=== PATIENT | male | born 1960 | race Caucasian/White ===

== ENCOUNTER 2020-10-24 16:13 | Inpatient (IN) | payer MEDICAID, OTHER ==
[~2020-10-24] VITALS: Ht 188 cm; Wt 92.6 kg
--- NOTE | 2020-10-24 16:36 | NUR ---
calibrator barometers note: Pt currently in CT. division order technician to take pt to room 10 when study is complete.
[2020-10-24 16:49] LABS: BASOPHILS % (AUTO) 1 % (0-1); EOSINOPHILS % (AUTO) 1 % (1-7); LYMPHOCYTES % (AUTO) 38 % (22-44); MEAN CORPUSCULAR HGB CONC 34.2 g/dL (33.2-36.2); MEAN PLATELET VOLUME 9.4 fL (7.4-10.4); MONOCYTES % (AUTO) 15 % (2-9); NEUTROPHILS % (AUTO) 46 % (42-75); PLATELET COUNT 159 x10^3/uL (130-400); RED BLOOD COUNT 5.04 x10^6/uL (4.38-5.82); RED CELL DISTRIBUTION WIDTH 13.7 % (9.4-14.8)
[2020-10-24 16:59] LABS: ALBUMIN 3.5 g/dL (3.4-5.0); ANION GAP 7 mmol/L (5-15); CALCIUM 8.4 mg/dL (8.5-10.1); CHLORIDE 106 mmol/L (98-107)
[2020-10-24 17:04] LABS: ALANINE AMINOTRANSFERASE 32 U/L (12-78); ALKALINE PHOSPHATASE 95 U/L (45-117); BILIRUBIN,TOTAL 0.5 mg/dL (0.2-1.0); CREATININE 0.96 mg/dL (0.7-1.3); TOTAL PROTEIN 7.9 g/dL (6.4-8.2)
[2020-10-24 17:06] LABS: INTERNATIONAL NORMALIZED RATIO 0.96 (0.93-1.1); PROTHROMBIN TIME 10.3 Seconds (9.6-11.5)
--- NOTE | 2020-10-24 18:38 | NUR ---
float rn at bedside to break primary rn, maranda, for lunch. pt back from radiology, tolerated scan well. denies needs at this time. vss.
--- NOTE | 2020-10-24 20:51 | NUR ---
attempt x 1
[2020-10-24 22:42] VITALS: BP 145/92
[2020-10-24 23:00] VITALS: BP 120/75
[2020-10-24] MEDS ORDERED: METO50TA82 PO (23:11)
[2020-10-24] MEDS ORDERED: OXYC-501 PO (23:11)
[2020-10-24] MEDS ORDERED: CLOP75TA52 PO (23:11)
[2020-10-24] MEDS ORDERED: LISI30TA4 PO (23:11)
[2020-10-24] MEDS ORDERED: CLON1TAB11 PO (23:11)
[2020-10-25] VITALS (10 sets, daily range): BP systolic 110–159; BP diastolic 64–89
[2020-10-25] MEDS: ATORVASTATIN 40 MG TABLET PO SCH ×2 (00:47→21:21)
[2020-10-25 06:53] LABS: CHOL/HDL RATIO 6.2; LDL/HDL RATIO 3.3 (0.5-3.0)
[2020-10-25] MEDS ORDERED: ASPIRIN 81 MG TABLET CHEW PO/NG SCH (09:00)
[2020-10-25] MEDS ORDERED: LORazepam 2 MG/ML, 1ML IVPush ONE (09:30)
[2020-10-25] MEDS ORDERED: OXYcodone/APAP 10/325MG TABLET PO PRN (09:30)
[2020-10-25] MEDS: HEPARIN 5,000 UNITS/ML, 1ML SQ SCH ×2 (09:42→18:19)
[2020-10-25] MEDS: INSULIN LISPRO 100 UNITS/ML, PEN SQ-INSULIN SCH ×3 (14:45→21:22)
[2020-10-25] MEDS: metFORMIN 850 MG TABLET PO SCH (18:19)
[2020-10-25] MEDS: OXYcodone/APAP 10/325MG TABLET PO PRN (19:41)
[2020-10-26] MEDS: HEPARIN 5,000 UNITS/ML, 1ML SQ SCH ×3 (00:58→16:42)
[2020-10-26 01:02] VITALS: BP 120/75
[2020-10-26 01:08] VITALS: BP 120/75
[2020-10-26] MEDS: OXYcodone/APAP 10/325MG TABLET PO PRN ×4 (01:50→20:26)
[2020-10-26 04:29] VITALS: BP 119/80
[2020-10-26 06:19] LABS: BASOPHILS % (AUTO) 1 % (0-1); EOSINOPHILS % (AUTO) 3 % (1-7); LYMPHOCYTES % (AUTO) 48 % (22-44); MEAN CORPUSCULAR HEMOGLOBIN 32.3 pg (27.5-34.5); MEAN CORPUSCULAR HGB CONC 34.3 g/dL (33.2-36.2); MEAN PLATELET VOLUME 9.1 fL (7.4-10.4); MONOCYTES % (AUTO) 13 % (2-9); NEUTROPHILS % (AUTO) 35 % (42-75); PLATELET COUNT 116 x10^3/uL (130-400); RED BLOOD COUNT 4.42 x10^6/uL (4.38-5.82); RED CELL DISTRIBUTION WIDTH 13.5 % (9.4-14.8)
[2020-10-26 06:25] LABS: CHLORIDE 104 mmol/L (98-107)
[2020-10-26 06:29] LABS: ANION GAP 5 mmol/L (5-15); CREATININE 0.67 mg/dL (0.7-1.3)
[2020-10-26] MEDS ORDERED: POTASSIUM CHLORIDE 20 MEQ TAB.ER.PRT PO ONE ×2 (07:00→08:30)
[2020-10-26] MEDS: INSULIN LISPRO 100 UNITS/ML, PEN SQ-INSULIN SCH ×4 (07:00→20:41)
[2020-10-26] MEDS: LISINOPRIL 20 MG TABLET PO SCH (08:05)
[2020-10-26] MEDS: metFORMIN 850 MG TABLET PO SCH ×2 (08:05→16:42)
[2020-10-26] MEDS: CLOPIDOGREL 75 MG TABLET PO SCH (08:05)
[2020-10-26] MEDS: ASPIRIN 325 MG TABLET EC PO SCH (08:09)
[2020-10-26 08:58] VITALS: BP 129/78
[2020-10-26 13:24] LABS: LDL/HDL RATIO 3.1 (0.5-3.0)
[2020-10-26 14:22] VITALS: BP 129/75
[2020-10-26 19:34] VITALS: BP 140/78
[2020-10-26] MEDS: ATORVASTATIN 40 MG TABLET PO SCH (20:26)
[2020-10-27 00:42] VITALS: BP 136/86
[2020-10-27] MEDS: HEPARIN 5,000 UNITS/ML, 1ML SQ SCH ×3 (00:44→18:08)
[2020-10-27 03:49] VITALS: BP 139/87
[2020-10-27] MEDS: OXYcodone/APAP 10/325MG TABLET PO PRN ×4 (03:51→21:57)
[2020-10-27] MEDS: ASPIRIN 325 MG TABLET EC PO SCH (05:25)
[2020-10-27] MEDS: INSULIN LISPRO 100 UNITS/ML, PEN SQ-INSULIN SCH ×4 (07:00→20:14)
[2020-10-27 07:20] VITALS: BP 144/87
[2020-10-27] MEDS: LISINOPRIL 20 MG TABLET PO SCH (08:28)
[2020-10-27] MEDS: CLOPIDOGREL 75 MG TABLET PO SCH (08:28)
[2020-10-27] MEDS: metFORMIN 850 MG TABLET PO SCH ×2 (08:28→16:07)
[2020-10-27 13:30] VITALS: BP 119/74
[2020-10-27 19:22] VITALS: BP 115/65
[2020-10-27] MEDS: ATORVASTATIN 40 MG TABLET PO SCH (21:58)
[2020-10-28 00:53] VITALS: BP 131/80
[2020-10-28] MEDS: HEPARIN 5,000 UNITS/ML, 1ML SQ SCH ×3 (01:44→16:35)
[2020-10-28] MEDS: ASPIRIN 325 MG TABLET EC PO SCH (06:15)
[2020-10-28] MEDS: OXYcodone/APAP 10/325MG TABLET PO PRN ×2 (06:15→10:34)
[2020-10-28] MEDS: INSULIN LISPRO 100 UNITS/ML, PEN SQ-INSULIN SCH ×4 (07:00→20:48)
[2020-10-28] MEDS: metFORMIN 850 MG TABLET PO SCH ×2 (08:16→16:35)
[2020-10-28] MEDS: CLOPIDOGREL 75 MG TABLET PO SCH (08:16)
[2020-10-28] MEDS: LISINOPRIL 20 MG TABLET PO SCH (08:16)
[2020-10-28 14:02] VITALS: BP 91/60
[2020-10-28 18:43] VITALS: BP 118/74
[2020-10-28] MEDS: ATORVASTATIN 40 MG TABLET PO SCH (20:48)
[2020-10-29] MEDS: OXYcodone/APAP 10/325MG TABLET PO PRN ×4 (00:25→23:19)
[2020-10-29] MEDS: HEPARIN 5,000 UNITS/ML, 1ML SQ SCH ×3 (00:25→16:11)
[2020-10-29 01:47] VITALS: BP 106/74
[2020-10-29] MEDS: ASPIRIN 325 MG TABLET EC PO SCH (05:09)
[2020-10-29] MEDS: INSULIN LISPRO 100 UNITS/ML, PEN SQ-INSULIN SCH ×4 (07:31→20:20)
[2020-10-29] MEDS: metFORMIN 850 MG TABLET PO SCH ×2 (08:58→16:11)
[2020-10-29] MEDS: LISINOPRIL 20 MG TABLET PO SCH (08:58)
[2020-10-29] MEDS: CLOPIDOGREL 75 MG TABLET PO SCH (08:58)
[2020-10-29 19:18] VITALS: BP 100/61
[2020-10-29] MEDS: ATORVASTATIN 40 MG TABLET PO SCH (20:20)
[2020-10-30 01:01] VITALS: BP 112/71
[2020-10-30] MEDS: HEPARIN 5,000 UNITS/ML, 1ML SQ SCH ×3 (02:32→16:33)
[2020-10-30] MEDS: ASPIRIN 81 MG TABLET EC PO SCH (05:21)
[2020-10-30] MEDS: INSULIN LISPRO 100 UNITS/ML, PEN SQ-INSULIN SCH ×4 (07:00→20:58)
[2020-10-30 07:24] VITALS: BP 100/62
[2020-10-30] MEDS: OXYcodone/APAP 10/325MG TABLET PO PRN ×3 (07:39→20:58)
[2020-10-30] MEDS: metFORMIN 850 MG TABLET PO SCH ×2 (08:00→16:33)
[2020-10-30] MEDS: CLOPIDOGREL 75 MG TABLET PO SCH (08:26)
[2020-10-30] MEDS ORDERED: LISINOPRIL 10 MG TABLET PO SCH (09:00)
[2020-10-30 12:44] VITALS: BP 108/76
[2020-10-30 19:18] VITALS: BP 100/60
[2020-10-30] MEDS: ATORVASTATIN 40 MG TABLET PO SCH (20:58)
[2020-10-31] MEDS: HEPARIN 5,000 UNITS/ML, 1ML SQ SCH ×3 (01:00→16:57)
[2020-10-31 01:18] VITALS: BP 110/72
[2020-10-31] MEDS: OXYcodone/APAP 10/325MG TABLET PO PRN ×4 (03:00→21:30)
[2020-10-31] MEDS: ASPIRIN 81 MG TABLET EC PO SCH (05:21)
[2020-10-31] MEDS: INSULIN LISPRO 100 UNITS/ML, PEN SQ-INSULIN SCH ×4 (07:00→19:53)
[2020-10-31 07:06] VITALS: BP 108/72
[2020-10-31] MEDS: metFORMIN 850 MG TABLET PO SCH ×2 (08:58→16:57)
[2020-10-31] MEDS: CLOPIDOGREL 75 MG TABLET PO SCH (08:58)
[2020-10-31 12:58] VITALS: BP 106/71
[2020-10-31 19:26] VITALS: BP 118/71
[2020-10-31] MEDS: ATORVASTATIN 40 MG TABLET PO SCH (21:30)
[2020-11-01 00:20] VITALS: BP 112/73
[2020-11-01] MEDS: HEPARIN 5,000 UNITS/ML, 1ML SQ SCH ×3 (01:16→17:10)
[2020-11-01] MEDS: ASPIRIN 81 MG TABLET EC PO SCH (06:11)
[2020-11-01] MEDS: OXYcodone/APAP 10/325MG TABLET PO PRN ×3 (06:11→21:40)
[2020-11-01] MEDS: INSULIN LISPRO 100 UNITS/ML, PEN SQ-INSULIN SCH ×4 (07:00→21:41)
[2020-11-01 07:34] VITALS: BP 108/73
[2020-11-01] MEDS: CLOPIDOGREL 75 MG TABLET PO SCH (08:29)
[2020-11-01] MEDS: metFORMIN 850 MG TABLET PO SCH ×2 (08:29→17:10)
[2020-11-01 15:39] VITALS: BP 135/82
[2020-11-01 20:33] VITALS: BP 123/82
[2020-11-01] MEDS: ATORVASTATIN 40 MG TABLET PO SCH (21:40)
[2020-11-02] MEDS: HEPARIN 5,000 UNITS/ML, 1ML SQ SCH ×3 (01:14→16:39)
[2020-11-02 03:05] VITALS: BP 129/81
[2020-11-02] MEDS: OXYcodone/APAP 10/325MG TABLET PO PRN ×4 (03:06→22:20)
[2020-11-02] MEDS: ASPIRIN 81 MG TABLET EC PO SCH (05:18)
[2020-11-02 08:49] LABS: BASOPHILS % (AUTO) 1 % (0-1); EOSINOPHILS % (AUTO) 4 % (1-7); LYMPHOCYTES % (AUTO) 38 % (22-44); MEAN CORPUSCULAR HEMOGLOBIN 32.6 pg (27.5-34.5); MEAN CORPUSCULAR HGB CONC 35.4 g/dL (33.2-36.2); MEAN PLATELET VOLUME 9.2 fL (7.4-10.4); MONOCYTES % (AUTO) 12 % (2-9); NEUTROPHILS % (AUTO) 46 % (42-75); PLATELET COUNT 145 x10^3/uL (130-400); RED BLOOD COUNT 4.55 x10^6/uL (4.38-5.82); RED CELL DISTRIBUTION WIDTH 13.6 % (9.4-14.8)
[2020-11-02 08:52] LABS: ANION GAP 8 mmol/L (5-15); CALCIUM 8.5 mg/dL (8.5-10.1); CHLORIDE 102 mmol/L (98-107)
[2020-11-02] MEDS: INSULIN LISPRO 100 UNITS/ML, PEN SQ-INSULIN SCH ×4 (08:54→20:45)
[2020-11-02] MEDS: CLOPIDOGREL 75 MG TABLET PO SCH (08:55)
[2020-11-02] MEDS: metFORMIN 850 MG TABLET PO SCH ×2 (08:55→16:39)
[2020-11-02 08:56] LABS: ALANINE AMINOTRANSFERASE 79 U/L (12-78); ALKALINE PHOSPHATASE 92 U/L (45-117); BILIRUBIN,TOTAL 0.7 mg/dL (0.2-1.0); CREATININE 0.73 mg/dL (0.7-1.3); TOTAL PROTEIN 7.3 g/dL (6.4-8.2)
[2020-11-02 08:59] VITALS: BP 135/79
[2020-11-02 12:01] VITALS: BP 136/92
[2020-11-02 20:28] VITALS: BP 132/79
[2020-11-02] MEDS: ATORVASTATIN 40 MG TABLET PO SCH (20:42)
[2020-11-03 01:37] VITALS: BP 138/86
[2020-11-03] MEDS: HEPARIN 5,000 UNITS/ML, 1ML SQ SCH ×3 (01:37→17:56)
[2020-11-03] MEDS: OXYcodone/APAP 10/325MG TABLET PO PRN ×3 (04:24→17:57)
[2020-11-03] MEDS: ASPIRIN 81 MG TABLET EC PO SCH (05:27)
[2020-11-03] MEDS: INSULIN LISPRO 100 UNITS/ML, PEN SQ-INSULIN SCH ×3 (07:00→16:00)
[2020-11-03 07:07] VITALS: BP 144/63
[2020-11-03] MEDS ORDERED: OXYC-501 PO (09:55)
[2020-11-03] MEDS ORDERED: ATOR40TA78 PO (09:55)
[2020-11-03] MEDS ORDERED: ASPI81TA45 PO (09:55)
[2020-11-03] MEDS: CLOPIDOGREL 75 MG TABLET PO SCH (10:04)
[2020-11-03] MEDS: metFORMIN 850 MG TABLET PO SCH ×2 (10:04→17:56)
[2020-11-03 15:04] VITALS: BP 136/86
== END 2020-11-03 21:02 | disposition home or self-care (01) | DRG 948 ==
LOC: ED 20:49 → EDIP 20:55 → 4EST 21:27
PROVIDERS: ADMIT Internal Medicine; ATTEND Family Medicine
DX: R53.1 Weakness (principal); I69.351 Hemiplegia and hemiparesis following cerebral infarction affecting right dominant side; E11.9 Type 2 diabetes mellitus without complications; E78.5 Hyperlipidemia, unspecified; F17.210 Nicotine dependence, cigarettes, uncomplicated; F41.0 Panic disorder [episodic paroxysmal anxiety]; G89.29 Other chronic pain; I10 Essential (primary) hypertension; I65.23 Occlusion and stenosis of bilateral carotid arteries; J32.9 Chronic sinusitis, unspecified; W18.39XA Other fall on same level, initial encounter; Z79.02 Long term (current) use of antithrombotics/antiplatelets; Z79.891 Long term (current) use of opiate analgesic; Z91.81 History of falling; Z99.3 Dependence on wheelchair; Z85.528 Personal history of other malignant neoplasm of kidney; Y93.89 Activity, other specified; Y92.89 Other specified places as the place of occurrence of the external cause; Y99.8 Other external cause status
CPT/HCPCS: 36415; 70450; 70496; 70498; 70551; 80048; 80053; 80061; 82962; 83036; 83735; 84100; 85025; 85610; 85730; 87338; 93005; 93306; 93356; 96374; 99285; G0378; J1644; 92523-GN; J1815; J2060

== ENCOUNTER 2020-11-08 11:07 | Inpatient (IN) | payer SELFPAY ==
[~2020-11-08] VITALS: Ht 180.3 cm; Wt 90.9 kg
[~2020-11-08 11:07] MED LIST: ASPI81TA45 PO; ATOR40TA78 PO; CLON1TAB11 PO; CLOP75TA52 PO; LISI30TA4 PO; METO50TA82 PO; OXYC-501 PO
[2020-11-08 13:41] LABS: BASOPHILS % (AUTO) 1 % (0-1); EOSINOPHILS % (AUTO) 1 % (1-7); LYMPHOCYTES % (AUTO) 29 % (22-44); MEAN CORPUSCULAR HEMOGLOBIN 32.9 pg (27.5-34.5); MEAN CORPUSCULAR HGB CONC 35.6 g/dL (33.2-36.2); MEAN PLATELET VOLUME 8.7 fL (7.4-10.4); MONOCYTES % (AUTO) 9 % (2-9); NEUTROPHILS % (AUTO) 60 % (42-75); PLATELET COUNT 283 x10^3/uL (130-400); RED BLOOD COUNT 5.02 x10^6/uL (4.38-5.82); RED CELL DISTRIBUTION WIDTH 13.9 % (9.4-14.8)
[2020-11-08 13:54] LABS: ALBUMIN 3.7 g/dL (3.4-5.0); ANION GAP 6 mmol/L (5-15); CALCIUM 8.9 mg/dL (8.5-10.1); CHLORIDE 101 mmol/L (98-107)
[2020-11-08 13:56] LABS: CREATININE 0.88 mg/dL (0.7-1.3)
--- NOTE | 2020-11-08 14:11 | NUR ---
fixture maker note: Pt to room from lobby.
--- NOTE | 2020-11-08 14:57 | NUR ---
PT RESTING IN BED, ON MONITORS, VSS. PT STATES HX OF STROKE. PT STATES NEW ONSET OF RT SIDED WEAKNESS STARTING LAST NIGHT. PT STATES HE WENT TO BED AND WHEN HE WOKE UP THIS AM, SYMPTOMS REMAINED. PT IS WC BOUND, WAS BROUGHT TO ER BY HIS NEIGHBOR. PT NEURO EXAM COMPLETED, RT LE WEAKNESS NOTED, UNSURE OF PT'S BASELINE. PT ALSO WITH SLIGHTLY SLURRED SPEECH. PA-C STUDENT AT BEDSIDE FOR ASSESSMENT. WILL FOLLOW ORDERS.
[2020-11-08] MEDS ORDERED: PROPARACAINE OPHTH 0.5%, 15ML EACHEYE STA (16:02)
--- NOTE | 2020-11-08 16:29 | NUR ---
Float RN note: Pt resting in bed, NADN.
[2020-11-08] MEDS ORDERED: ASPIRIN 325 MG TABLET PO STA (16:43)
[2020-11-08] MEDS ORDERED: ASPIRIN 325 MG TABLET ONE (16:58)
[2020-11-08] MEDS ORDERED: PROPARACAINE OPHTH 0.5%, 15ML ONE (16:58)
--- NOTE | 2020-11-08 17:16 | NUR ---
PT MEDICATED PER ORDERS. PT REMAINS ON MONITORS, VSS. PT TO BE [facility] ADMIT, PT IS AWARE OF POC. CONT TO MONITOR.
--- NOTE | 2020-11-08 17:58 | NUR ---
PT RESTING IN BED, NO DISTRESS. PT REMAINS AWARE OF POC, TO BE [facility] ADMIT. PT REMAINS ON MONITORS, VSS. CONT TO MONITOR.
[2020-11-08] MEDS ORDERED: ONDANSETRON 2MG/ML, 2ML IVPush PRN (18:00)
[2020-11-08] MEDS ORDERED: ACETAMINOPHEN 325 MG TABLET PO PRN (18:00)
[2020-11-08] MEDS ORDERED: ONDANSETRON ODT 4 MG PO PRN (18:00)
[2020-11-08] MEDS ORDERED: OXYcodone IR 5MG TABLET PO PRN (18:00)
[2020-11-08] MEDS ORDERED: PROMETHAZINE 25 MG/ML, 1ML IM PRN (18:00)
[2020-11-08] MEDS ORDERED: hydrALAzine 20 MG/ML, 1ML IVPush PRN (18:00)
--- NOTE | 2020-11-08 18:02 | NUR ---
PT MEAL TRAY ORDERED.
[2020-11-08] MEDS ORDERED: ENOXAPARIN 40 MG/0.4 ML ONE (18:18)
[2020-11-08] MEDS: ENOXAPARIN 40 MG/0.4 ML SQ SCH (18:21)
--- NOTE | 2020-11-08 18:59 | NUR ---
REPORT GIVEN TO JENNIFER MONTANO.
--- NOTE | 2020-11-08 19:17 | NUR ---
PT ASLEEP WHEN THIS RN ENTERED ROOM, THIS RN WOKE PT TO INTRODUCE SELF, PT A/OX4, ALL NEEDS IN REACH, CALL LIGHT IN REACH, NAD AT THIS TIME, VSS, PT STATES HE JUST FEELS TIRED
[2020-11-08] MEDS ORDERED: ATORVASTATIN 40 MG TABLET ONE (20:00)
[2020-11-08] MEDS ORDERED: METOPROLOL TARTRATE 50 MG TAB ONE (20:01)
[2020-11-08] MEDS: LATANOPROST OPHTH 0.005%, 2.5ML LEFTEYE SCH (20:15)
[2020-11-08] MEDS: ATORVASTATIN 40 MG TABLET PO SCH (20:16)
[2020-11-08] MEDS: METOPROLOL TARTRATE 50 MG TAB PO SCH (20:16)
--- NOTE | 2020-11-08 20:21 | NUR ---
THIS RN SCANNED PTS NIGHT TIME DOSE OF METOPROLOL BUT PTS HEART RATE IS 78 SO THIS RN HELD THE DOSE
[2020-11-08] MEDS ORDERED: LATANOPROST OPHTH 0.005%, 2.5ML LEFTEYE SCH (21:00)
[2020-11-09 00:35] VITALS: BP 108/71
[2020-11-09 05:27] LABS: BASOPHILS % (AUTO) 1 % (0-1); EOSINOPHILS % (AUTO) 3 % (1-7); LYMPHOCYTES % (AUTO) 30 % (22-44); MEAN CORPUSCULAR HEMOGLOBIN 32.2 pg (27.5-34.5); MEAN CORPUSCULAR HGB CONC 34.9 g/dL (33.2-36.2); MEAN PLATELET VOLUME 8.5 fL (7.4-10.4); MONOCYTES % (AUTO) 11 % (2-9); NEUTROPHILS % (AUTO) 55 % (42-75); PLATELET COUNT 233 x10^3/uL (130-400); RED BLOOD COUNT 4.45 x10^6/uL (4.38-5.82); RED CELL DISTRIBUTION WIDTH 13.3 % (9.4-14.8)
[2020-11-09 05:36] LABS: CHLORIDE 102 mmol/L (98-107)
[2020-11-09 05:49] LABS: ALANINE AMINOTRANSFERASE 42 U/L (12-78); ALKALINE PHOSPHATASE 99 U/L (45-117); ANION GAP 5 mmol/L (5-15); BILIRUBIN,TOTAL 0.7 mg/dL (0.2-1.0); CALCIUM 8.3 mg/dL (8.5-10.1); CHOL/HDL RATIO 6.6; CHOLESTEROL, TOTAL 152 mg/dL (140-239); CREATININE 0.81 mg/dL (0.7-1.3); HDL CHOL % 15 % (26-37); HDL CHOLESTEROL (DIRECT) 23 mg/dL (40-60); LDL CHOLESTEROL,CALCULATED 84 mg/dL (54-169); LDL/HDL RATIO 3.7 (0.5-3.0); TOTAL PROTEIN 7.2 g/dL (6.4-8.2); TRIGLYCERIDES 224 mg/dL (50-200); VLDL CHOLESTEROL 45 mg/dL (0-25)
[2020-11-09] MEDS ORDERED: ASPIRIN 325 MG TABLET EC PO SCH (06:00)
[2020-11-09] MEDS ORDERED: ASPIRIN 81 MG TABLET EC ONE (06:11)
[2020-11-09] MEDS: ASPIRIN 81 MG TABLET EC PO SCH (06:13)
[2020-11-09 09:43] VITALS: BP 143/73
[2020-11-09 10:28] LABS: AMPHETAMINE SCREEN, URINE Negative (Negative); BARBITURATE SCREEN, URINE Negative (Negative); BENZODIAZEPINE SCREEN, URINE Positive (Negative); CANNABINOID SCREEN, URINE Negative (Negative); COCAINE SCREEN, URINE Negative (Negative); METHADONE SCREEN, URINE Negative (Negative); OPIATE SCREEN, URINE Negative (Negative)
[2020-11-09] MEDS ORDERED: CLOPIDOGREL 75 MG TABLET ONE (11:25)
[2020-11-09] MEDS ORDERED: METOPROLOL TARTRATE 50 MG TAB ONE (11:25)
[2020-11-09] MEDS ORDERED: metFORMIN 500 MG TABLET ONE (11:26)
[2020-11-09] MEDS ORDERED: OMEPRAZOLE 20 MG CAPSULE.DR ONE (11:26)
[2020-11-09] MEDS ORDERED: LISINOPRIL 10 MG TABLET ONE ×2 (11:26→11:34)
[2020-11-09] MEDS: CLOPIDOGREL 75 MG TABLET PO SCH (11:30)
[2020-11-09] MEDS: metFORMIN 500 MG TABLET PO SCH ×2 (11:30→16:34)
[2020-11-09] MEDS: LISINOPRIL 10 MG TABLET PO SCH (11:31)
[2020-11-09] MEDS: METOPROLOL TARTRATE 50 MG TAB PO SCH ×2 (11:32→19:56)
[2020-11-09] MEDS ORDERED: OXYcodone/APAP 10/325MG TABLET ONE (11:35)
[2020-11-09] MEDS: OXYcodone/APAP 10/325MG TABLET PO PRN ×2 (11:38→18:30)
[2020-11-09 12:22] VITALS: BP 138/68
[2020-11-09] MEDS ORDERED: LORazepam 2 MG/ML, 1ML IVPush ONE (14:00)
[2020-11-09] MEDS ORDERED: LORazepam 2 MG/ML, 1ML ONE (14:05)
--- NOTE | 2020-11-09 15:21 | NUR ---
Break RN: pt back from MRI, pt being transferred to floor at this time with EDT.
[2020-11-09 15:53] VITALS: BP 114/67
[2020-11-09] MEDS: ENOXAPARIN 40 MG/0.4 ML SQ SCH (16:34)
[2020-11-09] MEDS: ATORVASTATIN 40 MG TABLET PO SCH (19:56)
[2020-11-09] MEDS: LATANOPROST OPHTH 0.005%, 2.5ML LEFTEYE SCH (19:56)
[2020-11-09 20:00] VITALS: BP 100/59
[2020-11-10 00:39] VITALS: BP 106/65
[2020-11-10] MEDS: OXYcodone/APAP 10/325MG TABLET PO PRN ×3 (00:52→12:50)
[2020-11-10] MEDS: ASPIRIN 81 MG TABLET EC PO SCH (05:18)
[2020-11-10 07:46] VITALS: BP 120/72
[2020-11-10] MEDS: LISINOPRIL 10 MG TABLET PO SCH (08:37)
[2020-11-10] MEDS: metFORMIN 500 MG TABLET PO SCH (08:37)
[2020-11-10] MEDS: CLOPIDOGREL 75 MG TABLET PO SCH (08:37)
[2020-11-10] MEDS: METOPROLOL TARTRATE 50 MG TAB PO SCH (08:38)
[2020-11-10] MEDS ORDERED: METF500T17 PO (13:25)
[2020-11-10] MEDS ORDERED: LATA2.5D4 LEFTEYE (16:04)
== END 2020-11-10 18:56 | disposition home or self-care (01) | DRG 948 ==
LOC: ED 16:03 → EDIP 17:31 → 4EST 11-09 15:25
PROVIDERS: ADMIT Internal Medicine; ATTEND Internal Medicine
DX: R53.1 Weakness (principal); I69.351 Hemiplegia and hemiparesis following cerebral infarction affecting right dominant side; E11.9 Type 2 diabetes mellitus without complications; E78.5 Hyperlipidemia, unspecified; F17.210 Nicotine dependence, cigarettes, uncomplicated; F41.0 Panic disorder [episodic paroxysmal anxiety]; G89.29 Other chronic pain; H40.9 Unspecified glaucoma; I10 Essential (primary) hypertension; J32.9 Chronic sinusitis, unspecified; Z79.02 Long term (current) use of antithrombotics/antiplatelets; Z79.82 Long term (current) use of aspirin; Z79.899 Other long term (current) drug therapy; Z85.528 Personal history of other malignant neoplasm of kidney; Z87.828 Personal history of other (healed) physical injury and trauma; Z99.3 Dependence on wheelchair; Z88.0 Allergy status to penicillin
CPT/HCPCS: 36415; 70450; 70551; 80048; 80053; 80061; 80307; 80320; 82040; 82962; 83036; 83735; 84100; 84443; 85025; 93005; 99285; G0378; J1650; G0480; J2060